=== PATIENT | male | born 1975 | race African-American/Black ===

== ENCOUNTER 2017-07-16 03:05 | Emergency (ER) | payer OTHER, MEDICAID ==
[2017-07-16 03:10] VITALS: BP 132/79; PULSE 55; RESP 16; TEMP 98.1; O2SAT 100
--- NOTE | 2017-07-16 04:30 | EDPHY ---
H & P Stated Complaint: RASH TO FOREHEAD FOR "A WHILE" Time Seen by Provider: 07/16/17 04:24 HPI/ROS: Chief Complaint: Lesion on forehead HPI: 42-year-old homeless male presenting for evaluation of a lesion has been as forehead "for awhile ". When asked what this means patient states he is uncertain. Patient states that is painful. He has not had any fevers or chills. I further questioning the patient began angry and just stated "I when she does take care of it ". Patient unwilling to provide any further history. ROS: 10 point Review of Systems is negative except as noted in the HPI. Physical Exam: Gen: Awake, Alert, No Distress HEENT: Patient has a small 1 cm non-erythematous lesion is center of his forehead. There is no fluctuance or pointing. There is no mass. There is no surrounding erythema. Patient will not allow me to touch it Skin: no rash Neuro: CN II-XII intact, Sensation grossly intact, Strength 5/5 in bilateral upper and lower extremities - Personal History Current Tetanus/Diphtheria Vaccine: Yes Current Tetanus Diphtheria and Acellular Pertussis (TDAP): Yes Tetanus Vaccine Date: 05/2012 - Medical/Surgical History Hx Asthma: Yes Hx Chronic Respiratory Disease: No Hx Diabetes: No Hx Cardiac Disease: No Hx Renal Disease: No Hx Cirrhosis: No Hx Alcoholism: No Hx HIV/AIDS: No Hx Splenectomy or Spleen Trauma: No Other PMH: ENT surgery for deviated septum, hemorrhoid surgery, hx of chronic pain - Social History Smoking Status: Current every day smoker Constitutional: Initial Vital Signs Temperature (C) 36.7 C 07/16/17 03:06 Heart Rate 55 L 07/16/17 03:06 Respiratory Rate 16 07/16/17 03:06 Blood Pressure 132/79 H 07/16/17 03:06 O2 Sat (%) 100 07/16/17 03:06 Allergies/Adverse Reactions: No Known Allergies Allergy (Verified 07/16/17 03:10) Home Medications: Medication Instructions Recorded No Known Home Meds 01/13/16 Medical Decision Making ED Course/Re-evaluation: During my examination patient became aggressive and agitated. While I was examining his lesion he brought and arm up toward me. I grabbed his forearm to prevent for myself from being struck. Patient got increasingly agitated. I told the patient that I must examine him in order to treat him. He stated that he just wanted some cream for it. I told him I cannot treat him further less the last me to examine it. He became increasingly insulting and aggravated. Patient does not have any emergency medical condition. He has had a medical screening examination. Patient was invited to leave the emergency department. He was escorted off the premises by security. Departure - Departure Disposition: Home, Routine, Self-Care Clinical Impression: Skin lesion Condition: Good Referrals: UNKNOWN,RUI [Other] - As per Instructions
== END 2017-07-16 04:47 | disposition home or self-care (01) ==
DX: L98.9 Disorder of the skin and subcutaneous tissue, unspecified (principal); F17.200 Nicotine dependence, unspecified, uncomplicated; J45.909 Unspecified asthma, uncomplicated

== ENCOUNTER 2017-08-26 14:56 | Emergency (ER) | payer OTHER, MEDICAID ==
[2017-08-26 15:04] VITALS: BP 147/88; PULSE 63; RESP 16; TEMP 98.6; O2SAT 97
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
== END 2017-08-26 15:46 | disposition home or self-care (01) ==
LOC: CED 14:56
DX: R20.2 Paresthesia of skin (principal); J45.909 Unspecified asthma, uncomplicated; F17.200 Nicotine dependence, unspecified, uncomplicated

== ENCOUNTER 2017-09-10 02:42 | Emergency (ER) | payer OTHER, MEDICAID ==
--- NOTE | 2017-09-10 02:47 | EDPHY ---
H & P Time Seen by Provider: 09/10/17 02:45 HPI/ROS: CC: "I think I'm hypothermic and by blood sugar might be low" HPI: This 42-year-old male presents to the emergency department tomas stating that he feels he is hypothermic and his blood sugar might be low. He states every time he goes outside he feels cold and every time he comes inside he feels restless and tired. He states this has been going on for "days, weeks , months, years." He states he has taken a glycemic test in the past and his blood glucose was 60. He says the lowest it has ever been has been 40. The patient is homeless and states he left his ID at the [facility] down the street. He says he can't get a hotel room without his license. He feels that when he goes back to the [facility] they will tell him they do not have his license and likens this to if we check his BG and it reads normal "you'll just tell me nothing is wrong." I explained that even if his BG is normal there are many other conditions that we could consider by physical exam and blood tests. He states that he does not want his blood drawn and will not even consent to a fingerstick blood glucose or physical exam. He states "you should be able to tell just by looking at me and checking my arms and legs that I'm hypothermic and my blood sugar is low." He then goes on to tell a story about how he has donated plasma in the past and has passed out requiring him to get stitches in his chin. At this time he would just like something to eat and to digest for 15 min. His temperature at triage is 36.4C but no other vitals signs were allowed by the patient. He will not consent to further treatment and agrees to sign out against medical advice. He is not significantly agitated, speaks in full and lucid sentences, does not appear to be under the influence of any mind altering substances. He appears to understand what my recommendations are, the benefit of these recommendations, and the risks of not following these recommendations, up to and including disability and/or . Source: Patient Exam Limitations: Other (Refusing exam) - Medical/Surgical History PMH: PMH: "neuropathic peripheral neuropathy" PSH: denied NKDA Meds: denied - Social History Smoking Status: Unknown if ever smoked (Denied current tobacco use) Alcohol Use: Other (denies) Drug Use: Other (denies) - Physical Exam Exam: Patient refused physical exam. He was given juice and snacks. Observed: Alert and oriented x 3 in NAD. Appears slightly fatigued. HEENT: normocephalic, no obvious head trauma, EOMI, mucous membranes moist Neck: supple, no JVD Heart sounds: not examined. Lungs: not examined but no cough, non-labored breathing, no conversational dyspnea Abd: not examined Ext: no edema, moves all extremities well Neuro: speech normal, no slurring, appropriate conversation, no observed obvious neurologic deficit ADDENDUM: At discharge, patient apologizes for refusing treatment. Allows a heart and lung exam which were normal without any abnormality. He also wanted to know his weight prior to leaving. Medical Decision Making ED Course/Re-evaluation: Patient more alert after eating and resting for 20 minutes. Still declines labs but allowed a heart and lung exam. Differential Diagnosis: DDx: includes but is not limited to hypoglycemia, electrolyte abnormality, intracranial abnormality, infection, substance abuse, psychiatric disorder Departure - Departure Disposition: Against Medical Advice Clinical Impression: Weakness generalized Condition: Good Instructions: Fatigue (ED) Additional Instructions: Please return to the Emergency Department if you change your mind and would like further evaluation. Please follow up with a primary care provider within the next few days. Referrals: [facility],. [Clinic] - As per Instructions
== END 2017-09-10 03:45 | disposition left against medical advice (07) ==
LOC: CED 02:42 → MERGE 02:42 → CED 03:45
DX: R53.1 Weakness (principal)

== ENCOUNTER 2017-09-23 17:35 | Emergency (ER) | payer OTHER, MEDICAID ==
[2017-09-23 17:43] VITALS: BP 147/88; PULSE 63; RESP 18; TEMP 98.6; O2SAT 98
--- NOTE | 2017-09-23 17:55 | EDPHY ---
H & P Time Seen by Provider: 09/23/17 17:39 HPI/ROS: Chief complaint. Left face pain HPI. Patient complains of bruising and pain to the left face. It has been present for 2 days. He says that he was combing his mills on the right cheek and facial hair was coming out. He decided to comb harder on the left cheek and then subsequently developed some pain and bruising to the left cheek. It is worse when he opens is mouth widely or pushes on the bruised area. He has no dental pain. There has been no fever. He is concerned about infection. ROS Constitutional. no fever/chills, no weakness Eyes. no problems with vision ENT. no sore throat, no nasal drainage Cardiovascular. no chest pain Respiratory. no shortness of breath, no cough Abdominal. no abdominal pain, no nausea/vomiting, no diarrhea . no problems urinating MS. no calf pain/swelling, no neck/back pain, no joint pain Skin. Bruise left cheek Lymph. no swollen glands Neuro. no headache, no dizziness, no difficulty walking or with speech Past Medical/Surgical History: Single, daily smoker, no alcohol Social History: Hemorrhoid surgery, ENT surgery, chronic pain Smoking Status: Current some day smoker Physical Exam: General Appearance: Alert well-developed male mild distress vital signs stable Eyes: Pupils equal and round no pallor or injection. ENT, mucous membranes are moist. No evidence of dental infection or abscess or swelling. Respiratory: There are no retractions, lungs are clear to auscultation. Cardiovascular: Regular rate and rhythm. Gastrointestinal: Abdomen is soft and nontender, no masses, bowel sounds normal. Neurological: Awake and alert, sensory and motor exams grossly normal. Skin: Bruising to the left cheek and tender to palpation Musculoskeletal: Neck is supple nontender. Extremities symmetrical, full range of motion. Psychiatric: Patient is oriented X 3, there is no agitation. Constitutional: Initial Vital Signs Temperature (C) 37 C 09/23/17 17:40 Heart Rate 63 09/23/17 17:40 Respiratory Rate 18 09/23/17 17:40 Blood Pressure 147/88 H 09/23/17 17:40 O2 Sat (%) 98 09/23/17 17:40 O2 Delivery Mode Room Air Allergies/Adverse Reactions: No Known Allergies Allergy (Verified 09/23/17 17:43) Home Medications: Medication Instructions Recorded No Known Home Meds 01/13/16 Medical Decision Making ED Course/Re-evaluation: Patient tells me he would really just like some bacitracin to put on the bruise. He does not wish any other medications. Patient and I discussed treatment plan including criteria for return and importance of follow-up and further evaluation. He expresses understanding and agreement Patient is given bacitracin samples Differential Diagnosis: This appears to be bruise from local trauma. There is no evidence of cellulitis or dental infection. Departure - Departure Disposition: Home, Routine, Self-Care Clinical Impression: Facial bruising Qualifiers: Encounter type: initial encounter Qualified Code(s): S00.83XA - Contusion of other part of head, initial encounter Condition: Good Instructions: Facial Contusion (ED) Additional Instructions: Apply bacitracin antibiotic ointment 3-4 times daily next 3 days. Return for worsening symptoms. Recheck in 2-3 days if not improving Referrals: MAKAYLA VLAIENTE [Primary Care Provider] - 2-3 days, if not improved
== END 2017-09-23 18:05 | disposition home or self-care (01) ==
LOC: CED 17:35
DX: S00.83XA Contusion of other part of head, initial encounter (principal); F17.200 Nicotine dependence, unspecified, uncomplicated; X58.XXXA Exposure to other specified factors, initial encounter

== ENCOUNTER 2017-10-24 06:29 | Emergency (ER) | payer OTHER, MEDICAID ==
[2017-10-24 06:40] VITALS: BP 143/86
--- NOTE | 2017-10-24 06:51 | EDPHY ---
H & P Stated Complaint: "pain" from neuropathy per pt, cuts on face bothering him as well. Time Seen by Provider: 10/24/17 06:48 HPI/ROS: CHIEF COMPLAINT: Forehead pain HISTORY OF PRESENT ILLNESS: The patient is a 42-year-old homeless man with a history of picking. He states that he has neuropathic pain to his forehead from a poison that he took some years ago. He has been her several times complaining of facial pain. He has a chronic wound in the center of his forehead that he repeatedly picks. He is here requesting Neosporin. He states that he is also having headache and is requesting Tylenol. No fevers. No trauma. REVIEW OF SYSTEMS: Constitutional: denies: chills, fever, recent illness, recent injury EENTM: denies: blurred vision, double vision, nose congestion Respiratory: denies: cough, shortness of breath Cardiac: denies: chest pain, irregular heart rate, lightheadedness, palpitations Gastrointestinal/Abdominal: denies: abdominal pain, diarrhea, nausea, vomiting, blood streaked stools Genitourinary: denies: dysuria, frequency, hematuria, pain Musculoskeletal: denies: joint pain, muscle pain Skin: See HPI Neurological: See HPI denies: numbness, paresthesia, tingling, dizziness, weakness Hematologic/Lymphatic: denies: blood clots, easy bleeding, easy bruising Immunologic/allergic: denies: HIV/AIDS, transplant EXAM: GENERAL: Disheveled and in no acute distress. HEAD: Atraumatic, normocephalic. EYES: Pupils equal round and reactive to light, extraocular movements intact, sclera anicteric, conjunctiva are normal. ENT: TMs normal, nares patent, oropharynx clear without exudates. Moist mucous membranes. NECK: Normal range of motion, supple without lymphadenopathy or JVD. LUNGS: Breath sounds clear to auscultation bilaterally and equal. No wheezes rales or rhonchi. HEART: Regular rate and rhythm without murmurs, rubs or gallops. ABDOMEN: Soft, nontender, normoactive bowel sounds. No guarding, no rebound. No masses appreciated. BACK: No CVA tenderness, no spinal tenderness, step-offs or deformities EXTREMITIES: Normal range of motion, no pitting or edema. No clubbing or cyanosis. NEUROLOGICAL: Cranial nerves II through XII grossly intact. Normal speech, normal gait. 5/5 strength, normal movement in all extremities, normal sensation PSYCH: Normal mood, normal affect. SKIN: Small lesion to center forehead, no appearance of infection, no vesicular lesions. Source: Patient Exam Limitations: No limitations - Personal History Current Tetanus Diphtheria and Acellular Pertussis (TDAP): Yes Tetanus Vaccine Date: 2016 - Medical/Surgical History Hx Asthma: Yes Hx Chronic Respiratory Disease: No Hx Diabetes: No Hx Cardiac Disease: No Hx Renal Disease: No Hx Cirrhosis: No Hx Alcoholism: No Hx HIV/AIDS: No Hx Splenectomy or Spleen Trauma: No Other PMH: neuropathy,hypoglycemia, skin picking - Family History Significant Family History: No pertinent family hx - Social History Smoking Status: Current every day smoker Alcohol Use: Heavy Drug Use: Marijuana Constitutional: Initial Vital Signs Temperature (C) 36.7 C 10/24/17 06:37 Heart Rate 64 10/24/17 06:37 Respiratory Rate 14 10/24/17 06:37 Blood Pressure 143/86 H 10/24/17 06:37 O2 Sat (%) 92 10/24/17 06:37 O2 Delivery Mode Room Air Allergies/Adverse Reactions: No Known Allergies Allergy (Verified 10/24/17 06:36) Home Medications: Medication Instructions Recorded NK [No Known Home Meds] 09/10/17 Medical Decision Making ED Course/Re-evaluation: The patient is a homeless man who is here requesting Tylenol and Neosporin. He is stable vital signs is nontoxic-appearing. He was treated with Neosporin and Tylenol. We discussed alternative ways to obtain these medications in the future. Patient understands this plan and declines further workup or observation. Differential Diagnosis: Partial list of the Differential diagnosis considered include but were not limited to; skin picking, substance abuse, neuropathy, headache and although unlikely based on the history and physical exam, I also considered zoster, wound infection, foreign body, stroke. - Data Points Medications Given: Discontinued Medications Acetaminophen (Tylenol) 1,000 mg PO EDNOW ONE Stop: 10/24/17 06:56 Last Admin: 10/24/17 07:02 Dose: 1,000 mg Departure - Departure Disposition: Home, Routine, Self-Care Clinical Impression: Picking own skin Headache Qualifiers: Headache type: unspecified Headache chronicity pattern: acute headache Intractability: not intractable Qualified Code(s): R51 - Headache Condition: Fair Instructions: Acute Headache (ED) Referrals: [facility],. [Clinic] - As per Instructions
[2017-10-24] MEDS ORDERED: ACETAMINOPHEN 500 MG TAB PO ONE (06:55)
== END 2017-10-24 07:00 | disposition home or self-care (01) ==
LOC: CED 06:29
DX: R51 Headache (principal); F42.4 Excoriation (skin-picking) disorder; F17.200 Nicotine dependence, unspecified, uncomplicated; J45.909 Unspecified asthma, uncomplicated

== ENCOUNTER 2017-10-26 10:36 | Emergency (ER) | payer OTHER, MEDICAID ==
[2017-10-26 10:46] VITALS: BP 165/71
--- NOTE | 2017-10-26 11:09 | EDPHY ---
H & P Stated Complaint: c/o upper back pain - wants pain meds- will not get undressed Time Seen by Provider: 10/26/17 10:41 HPI/ROS: Chief Complaint: Upper back pain HPI: 42-year-old homeless male who is very well known to this emergency department with a history of chronic pain which he attributes to neuropathy. Patient is presenting today complaining of 2 days of upper back pain. Denies any falls or recent injuries. No heavy lifting. Does state he exercises regularly. No new numbness or weakness. States he had a low back pain about 15 years ago and had an injection at that time as well review knees injection today. Is also review knees x-rays. He has an appoint with primary care physician in 2 days. He is not taking any pain medication for this no fevers or chills. Denies any IV drug use. Pain is described about a 4/10. There are no aggravating or alleviating factors. ROS: 10 point Review of Systems is negative except as noted in the HPI. PMH: Chronic nerve pain Social History: Denies smoking, denies alcohol, denies other drug use Family History: non-contributory Physical Exam: Gen: Awake, Alert, No Distress HEENT: Nose: no rhinorrhea Eyes: PERRLA, EOMI Mouth: Moist mucosa Neck: Supple, no JVD Chest: nontender, lungs clear to auscultation Heart: S1, S2 normal, no murmur Abd: Soft, non-tender, no guarding Back: no CVA tenderness, no midline tenderness patient has palpable muscle spasm in the bilateral trapezius muscle reproducing presenting complaint. No midline tenderness or step-offs. Ext: no edema, non-tender Skin: no rash Neuro: CN II-XII intact, Sensation grossly intact, Strength 5/5 in bilateral upper and lower extremities - Personal History Current Tetanus Diphtheria and Acellular Pertussis (TDAP): Unsure Tetanus Vaccine Date: 2016 - Medical/Surgical History Hx Asthma: Yes Hx Chronic Respiratory Disease: No Hx Diabetes: No Hx Cardiac Disease: No Hx Renal Disease: No Hx Cirrhosis: No Hx Alcoholism: No Hx HIV/AIDS: No Hx Splenectomy or Spleen Trauma: No Other PMH: neuropathy,hypoglycemia, skin picking - Social History Smoking Status: Current every day smoker Constitutional: Initial Vital Signs Temperature (C) 36.6 C 10/26/17 10:45 Heart Rate 72 10/26/17 10:45 Respiratory Rate 18 10/26/17 10:45 Blood Pressure 165/71 H 10/26/17 10:45 O2 Sat (%) 96 10/26/17 10:45 O2 Delivery Mode Room Air Allergies/Adverse Reactions: No Known Allergies Allergy (Verified 10/24/17 06:36) Home Medications: Medication Instructions Recorded Ibuprofen 600 mg PO Q8 PRN #10 tablet 10/26/17 Medical Decision Making ED Course/Re-evaluation: 42-year-old male with musculoskeletal upper back pain. He has not have any red flags for epidural abscess. He is afebrile. He is completely neurologically intact. I do not feel imaging is indicated at this time. He has an appoint with primary care physician in 2 days. Will give him a Lidoderm patch in ibuprofen. He is in agreement with this plan at this time. - Data Points Medications Given: Discontinued Medications Miscellaneous Medication (Icy Hot Lidocaine/Menthol 4%/1% Patch) 1 patch TD EDNOW ONE Stop: 10/26/17 11:12 Last Admin: 10/26/17 11:23 Dose: 1 patch Departure - Departure Disposition: Home, Routine, Self-Care Clinical Impression: Back pain Condition: Good Instructions: Back Pain (ED) Additional Instructions: Take ibuprofen, 600 mg, 3 times a day. You may also take acetaminophen, 1000 mg every 6 hours. You may replace the Lidoderm patch every 24 hr. Make sure to remain active. Did do not lay in bed or sit in a chair for long periods. It is important to remain active and keep your back moving in order to improve. Please see the attached back exercise instructions. Referrals: [facility] TREVI[facility] [Other] - As per Instructions Prescriptions: Ibuprofen 600 mg PO Q8 PRN #10 tablet PRN Reason: Pain, Moderate
[2017-10-26] MEDS ORDERED: LIDOCAINE 4%/MENTHOL 1% PATCH TD ONE (11:11)
[2017-10-26] MEDS ORDERED: IBUPROFEN 600 MG TAB PO ONE (11:16)
== END 2017-10-26 11:25 | disposition home or self-care (01) ==
LOC: CED 10:36
DX: M54.6 Pain in thoracic spine (principal); F17.200 Nicotine dependence, unspecified, uncomplicated; J45.909 Unspecified asthma, uncomplicated

== ENCOUNTER 2017-10-26 16:09 | Emergency (ER) | payer OTHER, MEDICAID ==
[2017-10-26] MEDS ORDERED: LIDOCAINE 4%/MENTHOL 1% PATCH TD ONE (16:43)
[2017-10-26] MEDS ORDERED: IBUPROFEN 600 MG TAB PO ONE (16:45)
--- NOTE | 2017-10-26 16:45 | EDPHY ---
ED Progress Note Narrative: This is a 42-year-old male known to me from previous emergency department visits. He was seen in this emergency department by Dr. Nguyen about 5 hr ago with complaints of upper back pain. I reviewed Dr. Nguyen's note. At that time he was treated with a lidocaine patch and ibuprofen. He was given prescriptions for same. He has an appointment with his primary care physician day after tomorrow. Nothing has changed since his visit this morning. He presents for the second time today requesting an MRI scan, stating that he is concerned that there is something pressing in his chest that is affecting his breathing, and causing him to feel numb across the chest an into the arms. These are not new symptoms as he has been feeling this for the last couple of years. He has had no difficulty walking. He has no bowel or bladder problems. I explained to him that I do not think that he needs an emergency MRI scan. He plans to go to another hospital and request this study. I have explained that I do not think another hospital will perform an emergency MRI scan. I offered to repeat the neurologic exam that was done earlier today, but he declined a physical exam and one was not performed by me. I did observe him walking I note that his gait is normal. He was moving about easily during our conversation. He removed the lidocaine patch that had been placed earlier and this was replaced by us. I have encouraged him to continue with ibuprofen. It is too soon for a 2nd dose but he was given a dose to take when the time arrives. I do not feel that he has an emergency medical condition.
== END 2017-10-26 16:49 | disposition home or self-care (01) ==
LOC: CED 16:09
DX: M54.6 Pain in thoracic spine (principal)

== ENCOUNTER 2017-10-31 19:45 | Emergency (ER) | payer OTHER, MEDICAID ==
[2017-10-31 20:02] VITALS: BP 173/100
[2017-10-31] MEDS ORDERED: IBUPROFEN 600 MG TAB PO ONE (20:57)
[2017-10-31] MEDS ORDERED: LIDOCAINE 4%/MENTHOL 1% PATCH TD ONE (20:57)
[2017-10-31] MEDS ORDERED: PATCH REMOVAL 1 EA PATCH TD SCH (21:00)
--- NOTE | 2017-10-31 21:00 | EDPHY ---
H & P Time Seen by Provider: 10/31/17 20:01 HPI/ROS: This patient complains of chronic upper back pain 7/10 intensity at its peak achy in nature associated with bilateral upper extremity paresthesias the describes as numbness in the glove like distribution. This is his 3rd visit in the past 5 days. I reviewed his previous visits. He admits that he did not fill the Lidoderm patch prescription from Dr. Nguyen and has not taken any medications yet today. He reports that at some point he had injection in his upper back of analgesic and steroid with improvement in his symptoms but does not remember the the timing of that treatment. He also does not recall the location of that treatment. Patient denies any acute injuries. He did see his primary care physician who referred him to see the pain clinic, but he has not been seen yet at the pain clinic. ROS: Constitutional: No fevers or chills HEENT: No complaints new line pulmonary: He denies any acute shortness of breath. Cardiovascular: No complaints GI: No complaints integumentary: No skin rash Neuro: No bowel or bladder incontinence. No lower extremity numbness tingling or weakness. He denies any upper extremity weakness. 7 point ROS is otherwise negative. Social History: Patient uses marijuana regularly. He denies any IV drug use. Denies any other drug use Smoking Status: Current every day smoker Physical Exam: General Appearance: Black male Alert, no distress. Eyes: Pupils equal and round no pallor or injection. ENT, Mouth: Mucous membranes moist. Respiratory: There are no retractions, lungs are clear to auscultation. Cardiovascular: Regular rate and rhythm. No murmur gallop rub. Gastrointestinal: Abdomen is soft and nontender, no masses, bowel sounds normal. Neck: Nontender, supple Back: No midline tenderness. Patient has paraspinous muscular tenderness in the rhomboid and trapezius region bilaterally that reproduces his symptoms. Neurological: GCS 15. Patient maintains 5/5 strength bilateral upper extremities with 2+ symmetric biceps, triceps and brachioradialis reflexes and 2 + symmetric patellar reflexes bilaterally. He reports glove like distribution decreased light touch sensation to upper extremities but no focal radicular findings. Skin: Warm and dry, no rashes. Musculoskeletal: Neck is supple nontender. Extremities are symmetrical, full range of motion. Psychiatric: Mood and affect are normal. DIFFERENTIAL DIAGNOSIS: After history and physical exam differential diagnosis was considered for chronic upper back pain-musculoskeletal in etiology, muscle strain, bulging disc disease, osteoarthritis, drug seeking Constitutional: Initial Vital Signs Temperature (C) 37.2 C 10/31/17 19:59 Heart Rate 76 10/31/17 19:59 Respiratory Rate 16 10/31/17 19:59 Blood Pressure 173/100 H 10/31/17 19:59 O2 Sat (%) 97 10/31/17 19:59 O2 Delivery Mode Room Air Allergies/Adverse Reactions: No Known Allergies Allergy (Verified 10/31/17 20:01) Home Medications: Medication Instructions Recorded Ibuprofen 600 mg PO Q8 PRN #10 tablet 10/26/17 Methocarbamol [Robaxin 750 mg (*)] 750 - 1,500 mg PO QID PRN #30 tab 10/31/17 MDM/Departure - MDM Medications Given: Miscellaneous Information (Patch Removal) 1 ea TD DAILY21 JASON Stop: 04/29/18 20:59 Last Admin: 10/31/17 21:19 Dose: Not Given Discontinued Medications Ibuprofen (Motrin) 600 mg PO EDNOW ONE Stop: 10/31/17 20:58 Last Admin: 10/31/17 21:10 Dose: 600 mg Miscellaneous Medication (Icy Hot Lidocaine/Menthol 4%/1% Patch) 1 patch TD EDNOW ONE Stop: 10/31/17 20:58 Last Admin: 10/31/17 21:11 Dose: 1 patch ED Course/Re-evaluation: This patient has chronic complaints with no focal findings that would suggest acute radiculopathy. No evidence of cauda equina. No fevers or other red flag findings for epidural abscess or other concerns. I recommended the patient follow through with the plan of ibuprofen and Lidoderm patches. He is given a dose of each of those here tonight. Also provided a script for methocarbamol muscle relaxant with plan to follow up with outpatient pain clinic. He understands need to return emergency department should she develop any significant worsening of symptoms despite treatment plan. - Depart Disposition: Home, Routine, Self-Care Clinical Impression: Upper back pain, Paresthesias Condition: Good Instructions: Back Pain (ED) Additional Instructions: Diagnosis: Thoracic back pain 2. Paresthesias Plan: Ibuprofen 600 mg per 6 hr while awake for pain Lidoderm patches in addition Methocarbamol muscle relaxant and Tylenol in addition as needed. Follow up with the Pain Clinic as planned. Prescriptions: Methocarbamol [Robaxin 750 mg (*)] 750 - 1,500 mg PO QID PRN #30 tab PRN Reason: Muscle Spasms Referrals: MAKAYLA VALIENTE [Primary Care Provider] - As per Instructions
== END 2017-10-31 21:19 | disposition home or self-care (01) ==
LOC: CED 19:45
DX: M54.6 Pain in thoracic spine (principal); R20.2 Paresthesia of skin

== ENCOUNTER 2017-11-01 19:07 | Emergency (ER) | payer OTHER, MEDICAID ==
[2017-11-01 19:28] VITALS: BP 170/93
--- NOTE | 2017-11-01 19:36 | EDPHY ---
H & P Stated Complaint: UPPER BACK PAIN 2 WEEKS Time Seen by Provider: 11/01/17 19:36 HPI/ROS: HPI CHIEF COMPLAINT: Back pain HISTORY OF PRESENT ILLNESS: This is a 42-year-old male, seen multiple times recently in emergency room he had 2 ER visits on 10/26, another ER visit on , and before that he had ER visit on 10/24. He presents to the emergency room complaining of chronic pain. He is complaining of upper back pain. He states this is chronic he has had this for years. He denies any new injury. He is requesting pain medicine. I explained him that we should evaluate him with an x-ray and possibly blood work to help delineate his upper back pain that he states he has had chronic for years however these recommendations of obtaining an x-ray and blood work he became very angry and started Cursing at my face. Shaking his finger in my face. I asked him kindly to please not do that and that are more than happy to help him however he became irate. I became concerned for staff and my safety. I have asked for security at bedside. The patient not explain why so may add. I offered to do an x-ray of his back I also offered to give him anti-inflammatory pain medicine and check blood work however he has declined this and became high rate cursing at me. Of note here in the emergency room the patient refused to change in a gown, he refused to answer questions at triage, and additionally refused to allow me to fully examine his back. Clinically on exam he appears well nontoxic no acute distress. His neurological exam grossly is unremarkable. I was unable to fully assess his back however the assessment that I did obtain was unremarkable in terms of no significant swelling or abnormality seen on exam. I was able to slightly palpate his thoracic spine without significant pain. There are no signs of cauda equina on exam. No fever. No focal numbness or tingling and no weakness on exam. Past Medical History: Chronic back pain, neuropathy Past Surgical History: No recent surgery Social History: Homeless. Family History: Noncontributory ROS REVIEW OF SYSTEMS: A comprehensive 10 point review of systems is otherwise negative aside from elements mentioned in the history of present illness. Exam Constitutional appears well nontoxic triage nursing summary reviewed, vital signs reviewed, awake/alert. Eyes normal conjunctivae and sclera, EOMI, PERRLA. HENT normal inspection, atraumatic, moist mucus membranes, no epistaxis, neck supple/ no meningismus, no raccoon eyes. Respiratory clear to auscultation bilaterally, normal breath sounds, no respiratory distress, no wheezing. Cardiovascular rate normal, regular rhythm, no murmur, no edema, distal pulses normal. Gastrointestinal soft, non-tender, no rebound, no guarding, normal bowel sounds, no distension, no pulsatile mass. Genitourinary no CVA tenderness. Musculoskeletal thoracic spine: no midline vertebral tenderness, full range of motion, no calf swelling, no tenderness of extremities, no meningismus, good pulses, neurovascularly intact. Skin pink, warm, & dry, no rash, skin atraumatic. Neurologic awake, alert and oriented x 3, AAOx3, moves all 4 extremities equally, motor intact, sensory intact, CN II-XII intact, normal cerebellar, normal vision, normal speech. Psychiatric normal mood/affect. Heme/Lymph/Immune no lymphadenopathy. Differential Diagnosis: Includes but is not limited to in a particular order chronic back pain, neuropathy, annular tear, disc herniation, cauda equina, infection, spinal epidural abscess, bony abnormality, compression fracture Medical Decision Making: Offered to x-ray and obtain blood work for the patient and anti-inflammatory pain medicine however he got I rate and rather threatening. He left the emergency room without any further incident. Source: Patient - Personal History Current Tetanus Diphtheria and Acellular Pertussis (TDAP): Yes Tetanus Vaccine Date: 2016 - Medical/Surgical History Hx Asthma: No Hx Chronic Respiratory Disease: No Hx Diabetes: No Hx Cardiac Disease: No Hx Renal Disease: No Hx Cirrhosis: No Hx Alcoholism: No Hx HIV/AIDS: No Hx Splenectomy or Spleen Trauma: No Other PMH: Chronic degeneritive disc disease, neuropathy, hypoglycemia, skin picking, marijuana user. - Social History Smoking Status: Current some day smoker Constitutional: Initial Vital Signs Temperature (C) 36.9 C 11/01/17 19:26 Heart Rate 68 11/01/17 19: Respiratory Rate 16 11/01/17 19:26 Blood Pressure 170/93 H 11/01/17 19:26 O2 Sat (%) 98 11/01/17 19:26 O2 Delivery Mode Room Air Allergies/Adverse Reactions: No Known Allergies Allergy (Verified 10/31/17 20:01) Home Medications: Medication Instructions Recorded NK [No Known Home Meds] 11/01/17 Departure - Departure Disposition: Against Medical Advice Clinical Impression: Back pain Qualifiers: Back pain location: thoracic back pain Chronicity: chronic Back pain laterality : unspecified Qualified Code(s): M54.6 - Pain in thoracic spine; G89.29 - Other chronic pain; G89.29 - Other chronic pain Condition: Good Referrals: NONE *PRIMARY CARE P,. [Primary Care Provider] - As per Instructions
== END 2017-11-01 19:59 | disposition left against medical advice (07) ==
DX: M54.6 Pain in thoracic spine (principal); G89.29 Other chronic pain; F17.200 Nicotine dependence, unspecified, uncomplicated

== ENCOUNTER 2017-11-01 23:58 | Emergency (ER) | payer OTHER, MEDICAID ==
[2017-11-02 00:09] VITALS: BP 140/85
[2017-11-02] MEDS ORDERED: KETOROLAC 30 MG/1 ML SDV IM ONE (00:33)
[2017-11-02] MEDS ORDERED: LIDOCAINE 4%/MENTHOL 1% PATCH TD ONE (00:35)
--- NOTE | 2017-11-02 00:38 | EDPHY ---
H & P Stated Complaint: c/o upper back pain, seen for same at [facility] ED today Time Seen by Provider: 11/02/17 00:01 HPI/ROS: CC: upper back pain "for years" HPI: This 42-year-old male well known to this ER, with at least 6 ER visits [facility] in the last 10 days presents to the emergency department complaining of chronic upper back pain. He was in fact seen earlier today at the [facility] requesting pain medication. They recommended an x-ray and possibly blood work and at that point the patient reportedly became irate and security had to be called to the bedside. The patient now presents to [facility] for chronic upper back pain, "they say I have degenerative discs." I have seen this patient before. At this time he is being pleasant and cooperative for the most part. Reportedly he has a history of chronic back pain for which she has in the past received epidural injections. He produces handwritten note which he states is from his primary care provider, Rosa Martínez, with the number for spine specialists at the [facility]. He states his pain today is in his upper back from the shoulder blades up. He states there is nothing different about this pain tonight verses a number of years he has had the pain. He states he saw his primary care provider approximately 4 days ago and at that time also received a respite all injection. It is unclear whether he is referring to this visit or another recent visit where he states he had an EKG, blood tests, and x-rays. "I signed a waiver and you can go look it up." He states his hands tingle bilaterally but attributes this to his past medical history of neuropathy. He denies weakness in his upper extremities. He denies saddle anesthesia (this term was explained to him), and he also denies bowel or bladder incontinence. He denies recent trauma. He states he is quite active and boxes, lift weights, and power runs. He he denies fever or IV drug use. He openly admits to having a restraining order against him at the hospital down the road and asks "if I were to go there for an emergency, they would have to see me, right?" REVIEW OF SYSTEMS: Constitutional: No fever, no chills. Eyes: No discharge. ENT: No sore throat. Respiratory: No shortness of breath. Occasionally coughs up "small amount of streaks of blood". Cardiac: No chest pain, no palpitations. Gastrointestinal: No abdominal pain, no vomiting. Genitourinary: No hematuria. Musculoskeletal: See HPI. Skin: No rashes. Neurological: No headache. "Head feels swollen." Source: Patient Exam Limitations: Other (The patient is fairly cooperative however if you try and clarify his narrative or offer education he gets inpatient and edgy quite quickly.) - Personal History Current Tetanus Diphtheria and Acellular Pertussis (TDAP): Yes Tetanus Vaccine Date: 2016 - Medical/Surgical History PMH: PMH: Homelessness, chronic back pain, DDD, neuropathy, question of asthma per prior record from [facility], the patient admits to Risperdal injections but it is unclear if this is for schizophrenia, bipolar disorder or another psychiatric diagnosis. Denies kidney disease or GI bleed. PSH: From a recent visit to [facility] surgeries are listed as hemorrhoidectomy, nasal endoscopy, oral surgery. The patient also states he has had epidural injections in the past as well as other procedures for his back pain. FH: Not obtained NKDA Meds: Risperdal IM PCP: Dr. Goldie Martínez Hx Asthma: No Hx Chronic Respiratory Disease: No Hx Diabetes: No Hx Cardiac Disease: No Hx Renal Disease: No Hx Cirrhosis: No Hx Alcoholism: No Hx HIV/AIDS: No Hx Splenectomy or Spleen Trauma: No Other PMH: Chronic degeneritive disc disease, neuropathy, hypoglycemia, skin picking, marijuana user. - Social History Smoking Status: Current some day smoker Additional Social History: Smokes tobacco, denies other tobacco use. Denies alcohol use. Occasional marijuana use. Denies IV drug use. Homeless. - Physical Exam Exam: General Appearance: Alert, no distress. Slightly unkempt. Refuses to change into gown for exam. Eyes: Pupils equal and round no pallor or injection. ENT, Mouth: Mucous membranes are moist. Respiratory: There are no retractions. Cardiovascular: Normal peripheral perfusion. No JVD. Gastrointestinal: Abdomen flat. Neurological: Awake and alert, motor exams grossly normal. Skin: Warm and dry. Musculoskeletal: Neck is supple, FROM. Only limited MS exam allowed. No apparent abnormalities noted. Extremities are symmetrical, full range of motion. Psychiatric: Patient is oriented X 3. DIFFERENTIAL DIAGNOSIS: After history and physical exam differential diagnosis was considered for but not limited to: DDD, chronic pain, TB, PE, epidural abscess, rhabdomyolysis, cardiac ischemia, AAA, homelessness, narcotic seeking, psychiatric disorder. Constitutional: Initial Vital Signs Temperature (C) 97.9 F 11/02/17 00:05 Heart Rate 59 L 11/02/17 00:05 Respiratory Rate 16 11/02/17 00:05 Blood Pressure 140/85 H 11/02/17 00:05 O2 Sat (%) 97 11/02/17 00:05 O2 Delivery Mode Room Air Allergies/Adverse Reactions: No Known Allergies Allergy (Verified 10/31/17 20:01) Home Medications: Medication Instructions Recorded NK [No Known Home Meds] 11/01/17 Medical Decision Making - Diagnostics EKG Interpretation: Declined EKG. Imaging Results: Declined imaging. ED Course/Re-evaluation: The patient was seen and a limited exam was performed due to patient's noncompliance. Vital signs reviewed. His blood pressure is slightly elevated but he states this is much improved from earlier today at his prior ER visit. He was advised to follow this up with his primary care provider. The patient although seemingly more cooperative than his earlier ER visit in terms of conversation, still declines an EKG, imaging, or blood tests. With the heavy sensation he describes in his shoulders I have advised him to have an EKG to rule out cardiac etiology. Again he declined. With the history of coughing up scant amount of blood, I have advised him that we should do a chest x-ray to look for signs of tuberculosis, or pneumonia and we would also be able to see the thoracic spine. He has declined. I have offered him a blood test to look at his electrolytes and muscle enzymes as well as a D-dimer to rule out a blood clot in his lungs and again he declined these tests as well. He agreed to an injection Toradol for his discomfort "can you put it in my back?" He was also given a lidocaine patch to his upper back. He was given 2 tablets of Tylenol to take with him. He was resting comfortably and all his questions were answered to the best of my ability. He has contact information for the "shipping specialist at the [facility]" on a hand written note shown to me. I did review a few of his prior charts from our facilities and a record from [facility], and [facility]. When the nurse went to discharge the patient it was obvious he wanted to stay here to rest further. He became uncooperative with the nurse at this point. Please refer to nursing records. - Data Points Medications Given: Discontinued Medications Acetaminophen (Tylenol) 1,000 mg PO EDNOW ONE Stop: 11/02/17 00:51 Last Admin: 11/02/17 00:50 Dose: 1,000 mg Ketorolac Tromethamine (Toradol) 60 mg IM EDNOW ONE Stop: 11/02/17 00:34 Last Admin: 11/02/17 00:41 Dose: 60 mg Miscellaneous Medication (Icy Hot Lidocaine/Menthol 4%/1% Patch) 1 patch TD EDNOW ONE Stop: 11/02/17 00:36 Last Admin: 11/02/17 00:40 Dose: 1 patch Departure - Departure Disposition: Home, Routine, Self-Care Clinical Impression: Chronic upper back pain, Homelessness Condition: Good Instructions: Chronic Back Pain (ED) Additional Instructions: Call the spine/paint roller cover machine setter at the [facility] as directed by your primary care provider to arrange follow up. is the number you have written down. Return to the ER if numbness, tingling, weakness, fevers, or any other symptoms as listed in your discharge instructions or any other concerns. Follow up with your primary care provider regularly. I have also given you the number of a local primary care clinic as well. Referrals: Patient,NotPresent [Primary Care Provider] - As per Instructions [facility],. [Clinic] - As per Instructions
[2017-11-02] MEDS ORDERED: ACETAMINOPHEN 500 MG TAB PO ONE (00:50)
[2017-11-02] MEDS ORDERED: PATCH REMOVAL 1 EA PATCH TD SCH (21:00)
== END 2017-11-02 00:55 | disposition home or self-care (01) ==
LOC: CED 23:58
DX: M54.6 Pain in thoracic spine (principal); G89.29 Other chronic pain; F17.200 Nicotine dependence, unspecified, uncomplicated; Z59.0 Homelessness
CPT/HCPCS: 96372; 99284; J1885

== ENCOUNTER 2017-11-07 21:46 | Emergency (ER) | payer OTHER, MEDICAID ==
[2017-11-07 21:56] VITALS: BP 134/66
--- NOTE | 2017-11-07 22:02 | EDPHY ---
H & P Time Seen by Provider: 11/07/17 21:51 HPI/ROS: CHIEF COMPLAINT: Upper back pain HISTORY OF PRESENT ILLNESS: Patient is a 42-year-old male who presents to the emergency department with upper back pain. He has been to the emergency department numerous times in the past 2 weeks. He was seen at [facility] on 11/02/2017. Patient complains of chronic upper back pain. He has had this pain for years. He states he has been seen at numerous emergency departments in the area. He had a significant workup including "scans, cancer tests, blood work" at an outside facility that he reports as negative. He denies any new weakness or numbness. No incontinence. He was hoping to get an MRI and/or injections this evening. If we are not able to provide that he wants a note stating he was in the emergency department to follow up with his primary care physician. REVIEW OF SYSTEMS: My complete review of systems is negative except as mentioned in the HPI. Past Medical/Surgical History: Includes chronic back pain, DDD, neuropathy, asthma, possible psychiatric illness. Past surgical history: Hemorrhoidectomy, nasal endoscopy, oral surgery Social history: The patient is homeless Smoking Status: Current some day smoker Physical Exam: Vitals noted GENERAL: No acute distress, alert. HEENT: Eyes normal to inspection, no signs of dehydration. NECK: No thyromegaly, no lymphadenopathy, supple. RESPIRATORY: Clear to auscultation bilaterally, no rales, rhonchi or wheezing. CVS: Regular rate and rhythm, no rubs, murmurs, or gallops. ABDOMEN: Soft, nontender, nondistended, no organomegaly. BACK: Normal to inspection, no CVA tenderness. SKIN: Normal color, no rash, warm, dry. No pallor. EXTREMITIES: No pedal edema, no calf tenderness, no Homans sign or cords, no joint swelling. NEURO/PSYCH: Alert and oriented x3, flat affect, normal motor sensory exam. Normal gait. Constitutional: Initial Vital Signs Temperature (C) 36.7 C 11/07/17 21:52 Heart Rate 59 L 11/07/17 21:52 Respiratory Rate 15 11/07/17 21:52 Blood Pressure 134/66 H 11/07/17 21:52 O2 Sat (%) 97 11/07/17 21:52 O2 Delivery Mode Room Air Allergies/Adverse Reactions: No Known Allergies Allergy (Verified 10/31/17 20:01) Home Medications: Medication Instructions Recorded NK [No Known Home Meds] 11/01/17 Medical Decision Making ED Course/Re-evaluation: In the emergency department I I reviewed the patient's previous medical record. Also reviewed the recent email sent by Randee Beckwith on 11/02/2017. I offered the patient workup in the emergency department. He did not want laboratory studies, EKG or chest x-ray. I discussed options with the patient. At this time I do not feel he necessitates an emergent MRI. This is not appear to be in neuro surgical emergency. Patient requested and was given a lidoderm patch. Patient was given Tylenol 650 mg orally. The patient was given warnings prior to leaving. He will follow up with his primary care physician tomorrow. Differential Diagnosis: My differential includes but is not limited to musculoskeletal strain, spasm, disc herniation, spinal impingement, mass, malignancy, ACS, acute OK, bronchitis , pneumonia, pericarditis Departure - Departure Disposition: Home, Routine, Self-Care Clinical Impression: Upper back pain Condition: Good Instructions: Back Pain (ED) Additional Instructions: Return with increasing weakness, numbness, incontinence of urine or stool, fever or any other concerns. Referrals: MAKAYLA VALIENTE [Non Staff and Non MD] - 1-2 days without fail Stand Alone Forms: Statement of Treatment
[2017-11-07] MEDS ORDERED: LIDOCAINE 4%/MENTHOL 1% PATCH TD ONE (22:03)
[2017-11-07] MEDS ORDERED: ACETAMINOPHEN 325 MG TAB PO ONE (22:03)
[2017-11-08] MEDS ORDERED: PATCH REMOVAL 1 EA PATCH TD SCH (21:00)
== END 2017-11-07 22:29 | disposition home or self-care (01) ==
LOC: CED 21:46
DX: M54.6 Pain in thoracic spine (principal); J45.909 Unspecified asthma, uncomplicated; F17.200 Nicotine dependence, unspecified, uncomplicated

== ENCOUNTER 2017-12-03 11:07 | Emergency (ER) | payer OTHER, MEDICAID ==
[2017-12-03 11:17] VITALS: BP 139/93
[2017-12-03] MEDS ORDERED: IBUPROFEN 600 MG TAB PO ONE (11:27)
[2017-12-03] MEDS ORDERED: LIDOCAINE 4%/MENTHOL 1% PATCH TD ONE (11:27)
--- NOTE | 2017-12-03 11:31 | EDPHY ---
H & P Stated Complaint: Upper back pain x 1.5 month Time Seen by Provider: 12/03/17 11:21 HPI/ROS: CHIEF COMPLAINT: Back pain HISTORY OF PRESENT ILLNESS: The patient is a 42-year-old man is well known to me personally in the department. He is complaining of chronic upper back pain he states that it is actually significantly improved over the last few weeks. He has a follow-up appointment with his back specialist on the . He is here requesting 3 ibuprofen and a lidocaine patch. He states that this has worked well for him in the past. He denies any weakness numbness or paresthesias. No bowel or bladder abnormalities. No declined to walking. No known recent trauma. No fevers. REVIEW OF SYSTEMS: Constitutional: denies: chills, fever, recent illness, recent injury EENTM: denies: blurred vision, double vision, nose congestion Respiratory: denies: cough, shortness of breath Cardiac: denies: chest pain, irregular heart rate, lightheadedness, palpitations Gastrointestinal/Abdominal: denies: abdominal pain, diarrhea, nausea, vomiting, blood streaked stools Genitourinary: denies: dysuria, frequency, hematuria, pain Musculoskeletal: See HPI Skin: denies: lesions, rash, jaundice, bruising Neurological: denies: headache, numbness, paresthesia, tingling, dizziness, weakness Hematologic/Lymphatic: denies: blood clots, easy bleeding, easy bruising Immunologic/allergic: denies: HIV/AIDS, transplant EXAM: GENERAL: Well-appearing, well-nourished and in no acute distress. HEAD: Atraumatic, normocephalic. EYES: Pupils equal round and reactive to light, extraocular movements intact, sclera anicteric, conjunctiva are normal. ENT: TMs normal, nares patent, oropharynx clear without exudates. Moist mucous membranes. NECK: Normal range of motion, supple without lymphadenopathy or JVD. LUNGS: Breath sounds clear to auscultation bilaterally and equal. No wheezes rales or rhonchi. HEART: Regular rate and rhythm without murmurs, rubs or gallops. ABDOMEN: Soft, nontender, normoactive bowel sounds. No guarding, no rebound. No masses appreciated. BACK: No CVA tenderness, no spinal tenderness, step-offs or deformities no tenderness to palpation. Moving easily EXTREMITIES: Normal range of motion, no pitting or edema. No clubbing or cyanosis. NEUROLOGICAL: Cranial nerves II through XII grossly intact. Normal speech, normal gait. 5/5 strength, normal movement in all extremities, normal sensation PSYCH: Normal mood, normal affect. SKIN: Warm, dry, normal turgor, no visible rashes or lesions. Source: Patient Exam Limitations: No limitations - Personal History Current Tetanus Diphtheria and Acellular Pertussis (TDAP): Yes Tetanus Vaccine Date: 2016 - Medical/Surgical History Hx Asthma: No Hx Chronic Respiratory Disease: No Hx Diabetes: No Hx Cardiac Disease: No Hx Renal Disease: No Hx Cirrhosis: No Hx Alcoholism: No Hx HIV/AIDS: No Hx Splenectomy or Spleen Trauma: No Other PMH: Chronic degeneritive disc disease, neuropathy, hypoglycemia, skin picking, marijuana user. - Family History Significant Family History: No pertinent family hx - Social History Smoking Status: Current some day smoker Alcohol Use: Sober Drug Use: None Constitutional: Initial Vital Signs Temperature (C) 36.8 C 12/03/17 11:13 Heart Rate 64 12/03/17 11:13 Respiratory Rate 16 12/03/17 11:13 Blood Pressure 139/93 H 12/03/17 11:13 O2 Sat (%) 97 12/03/17 11:13 O2 Delivery Mode Room Air Allergies/Adverse Reactions: No Known Allergies Allergy (Verified 12/03/17 11:17) Home Medications: Medication Instructions Recorded NK [No Known Home Meds] 11/01/17 Medical Decision Making ED Course/Re-evaluation: 11:30 a.m. we will provide the patient with lidocaine patch and ibuprofen as he requests. He is otherwise eager to go. He has follow-up with his specialist planned. He states that overall he is doing much better and is improving every day. We discussed indications for returning to the emergency department. Differential Diagnosis: Partial list of the Differential diagnosis considered include but were not limited to; chronic back pain, degenerative disc disease and although unlikely based on the history and physical exam, I also considered neuropathy, infection , transverse myelitis, fracture. I discussed these differential diagnoses and the plan with the patient as well as the usual and expected course. The patient understands that the diagnosis is provisional and that in medicine we are not always correct and that further workup is often warranted. Usual and customary warnings were given. All of the patient's questions were answered. The patient was instructed to return to the emergency department should the symptoms at all worsen or return, otherwise to followup with the physician as we discussed. - Data Points Medications Given: Discontinued Medications Ibuprofen (Motrin) 600 mg PO EDNOW ONE Stop: 12/03/17 11:28 Last Admin: 12/03/17 11:30 Dose: 600 mg Miscellaneous Information (Patch Removal) 1 ea TD DAILY21 JASON Stop: 06/01/18 20:59 Last Admin: 12/03/17 11:34 Dose: Not Given Miscellaneous Medication (Icy Hot Lidocaine/Menthol 4%/1% Patch) 1 patch TD EDNOW ONE Stop: 12/03/17 11:28 Last Admin: 12/03/17 11:30 Dose: 1 patch Departure - Departure Disposition: Home, Routine, Self-Care Clinical Impression: Chronic mid back pain Qualifiers: Back pain laterality: midline Qualified Code(s): M54.6 - Pain in thoracic spine ; G89.29 - Other chronic pain; G89.29 - Other chronic pain Condition: Fair Instructions: Chronic Back Pain (ED) Referrals: NONE *PRIMARY CARE P,. [Primary Care Provider] - As per Instructions
[2017-12-03] MEDS ORDERED: PATCH REMOVAL 1 EA PATCH TD SCH (21:00)
== END 2017-12-03 11:38 | disposition home or self-care (01) ==
LOC: CED 11:07
DX: M54.6 Pain in thoracic spine (principal); G89.29 Other chronic pain; F17.200 Nicotine dependence, unspecified, uncomplicated

== ENCOUNTER 2017-12-25 08:23 | Emergency (ER) | payer OTHER, MEDICAID ==
[2017-12-25] MEDS ORDERED: IBUPROFEN 600 MG TAB PO ONE (08:24)
[2017-12-25] MEDS ORDERED: ACETAMINOPHEN 500 MG TAB PO ONE (08:27)
--- NOTE | 2017-12-25 08:32 | EDPHY ---
H & P Time Seen by Provider: 12/25/17 08:25 HPI/ROS: 42 yo M presents requesting ibuprofen for chronic pain issues, states he has an appointment this week for an epidural, but needs ibuprofen until that time.Complains of pain in his neck today, typical for him. Review of systems As per HPI General no fever no chills no weakness HEENT no eye pain no eye discharge. No eye redness, no sore throat Respiratory no cough, no shortness of breath Cardiac no chest pain, no peripheral edema GI no abdominal pain, no diarrhea, no constipation, no nausea, no vomiting no flank pain, no hematuria, no dysuria Musculoskeletal positive myalgias, no joint pain Heme no easy bruising, no easy bleeding Endo no polyuria, no polydipsia Skin no rashes, no pruritus Neuro no syncope, no dizziness, no headaches Psych is no suicidal ideation, no homicidal ideation Past Medical/Surgical History: schizophrenia chronic pain Social History: denies alcohol and drug use Smoking Status: Current some day smoker Physical Exam: 42-year-old male Alert and oriented in no acute distress nontoxic appearance, afebrile Atraumatic normocephalic Neck no JVD, supple, no ecchymosis no swelling, no focal tenderness Lungs clear to auscultation, no respiratory distress Heart regular rate and rhythm Extremities no cyanosis clubbing edema Constitutional: Initial Vital Signs Temperature (C) 36.8 C 12/25/17 08:32 Heart Rate 48 L 12/25/17 08:32 Respiratory Rate 14 12/25/17 08:32 Blood Pressure 122/75 H 12/25/17 08:32 O2 Sat (%) 98 12/25/17 08:32 O2 Delivery Mode Room Air Allergies/Adverse Reactions: No Known Allergies Allergy (Verified 12/25/17 08:30) Home Medications: Medication Instructions Recorded Ibuprofen 600 mg PO Q8 PRN 7 Days #21 tablet 12/25/17 Risperidone 12/25/17 Medical Decision Making ED Course/Re-evaluation: Patient here with chronic history of chronic pain, requesting ibuprofen. Physical exam unremarkable Patient given ibuprofen 600 mg p.o. Patient given acetaminophen 1 g p.o. Impression Chronic pain Plan Ibuprofen prescription Discharge - Data Points Medications Given: Discontinued Medications Acetaminophen (Tylenol) 1,000 mg PO EDNOW ONE Stop: 12/25/17 08:28 Last Admin: 12/25/17 08:30 Dose: 1,000 mg Ibuprofen (Motrin) 600 mg PO EDNOW ONE Stop: 12/25/17 08:25 Last Admin: 12/25/17 08:30 Dose: 600 mg Departure - Departure Disposition: Home, Routine, Self-Care Clinical Impression: Chronic pain Condition: Good Instructions: Chronic Pain (ED) Additional Instructions: Keep your follow up this week. Referrals: Patient,NotPresent [Primary Care Provider] - As per Instructions Prescriptions: Ibuprofen 600 mg PO Q8 PRN 7 Days #21 tablet PRN Reason: Pain, Moderate
[2017-12-25 08:35] VITALS: BP 122/75
== END 2017-12-25 08:43 | disposition home or self-care (01) ==
LOC: CED 08:23
DX: M54.2 Cervicalgia (principal); G89.29 Other chronic pain; F17.200 Nicotine dependence, unspecified, uncomplicated

== ENCOUNTER 2018-01-11 19:47 | Emergency (ER) | payer OTHER, MEDICAID ==
[2018-01-11] MEDS ORDERED: IBUPROFEN 800 MG TAB PO ONE ×3 (19:59→20:21)
[2018-01-11] MEDS ORDERED: LIDOCAINE 4%/MENTHOL 1% PATCH TD ONE ×2 (19:59→20:00)
--- NOTE | 2018-01-11 20:03 | EDPHY ---
H & P Time Seen by Provider: 01/11/18 19:49 HPI/ROS: CHIEF COMPLAINT: Neck pain, need medication HISTORY OF PRESENT ILLNESS: 42-year-old gentleman with a history of chronic neck pain presents the emergency department reporting that on January 05 he had a epidural injection performed by "[facility]" in [place]. He reports his chronic neck pain was much improved. He has been using lidocaine patch as well as ibuprofen 600 100 mg tablets which were provided via prescription. Patient reports that he is out of both lidocaine patches and the ibuprofen. He has no funds for further medications or lidocaine patches until the of the month. Patient denies any radicular symptoms. Denies any fevers or chills. Denies any intercurrent trauma. No fever, chills, chest pain, shortness of breath, palpitations, vomiting, diarrhea, urinary complaints, headache, lightheadedness. REVIEW OF SYSTEMS: Aside from elements discussed in the HPI, a comprehensive 10-point review of systems was reviewed and is negative. PAST MEDICAL HISTORY: Neck pain, mental health disease. On Risperdal. SOCIAL HISTORY: Homeless. VITAL SIGNS: see nurse's notes. GENERAL: Pleasant gentleman. No acute distress. Normal vital signs with the exception of mild hypertension. Patient thinks this is related to his pain. HEENT: Normal, no discharge or icterus, moist mucous membranes. Neck: Slight paraspinous spasm and tenderness right and left-sided. No midline tenderness. LUNGS: Clear to auscultation bilaterally, no wheezes, rhonchi or rales. CARDIAC: Regular rate and rhythm, no rubs, murmurs or gallops. ABDOMEN: Benign. BACK: No CVA tenderness. No vertebral tenderness. EXTREMITIES: No edema, FROM. NEURO: Alert and oriented, cost estimating clerk strength is equal bilaterally. Normal sensation. SKIN: Warm and dry, no rash. Smoking Status: Former smoker Constitutional: Initial Vital Signs Temperature (C) 36.9 C 01/11/18 19:55 Heart Rate 60 01/11/18 19:55 Respiratory Rate 16 01/11/18 19:55 Blood Pressure 172/85 H 01/11/18 19:55 O2 Sat (%) 96 01/11/18 19:55 O2 Delivery Mode Room Air Allergies/Adverse Reactions: No Known Allergies Allergy (Unverified 01/11/18 19:55) Home Medications: Medication Instructions Recorded NK [No Known Home Meds] 01/11/18 Medical Decision Making ED Course/Re-evaluation: 42-year-old male presents reporting that he needs lidocaine patch and prescription strength ibuprofen for some neck pain. Per the records he was seen in this Emergency Department on December 25 with similar complaints. At that visit he reported that he had a appointment to obtain at epidural injection which she states happened on January 05. Patient received a lidocaine patch in the emergency department in additional lidocaine patch to take home. He received ibuprofen 800 mg now with Tylenol 1000 mg. Patient also received ibuprofen 800 mg tablets x2 as a take home. [facility]. Differential Diagnosis: Differential diagnoses for the patient's symptom complex was considered including but not limited to chronic pain, acute pain, medication refill, lack of resources, drug-seeking behavior. - Data Points Medications Given: Discontinued Medications Acetaminophen (Tylenol) 1,000 mg PO EDNOW ONE Stop: 01/11/18 20:06 Last Admin: 01/11/18 20:10 Dose: 1,000 mg Ibuprofen (Motrin) 800 mg PO EDNOW ONE Stop: 01/11/18 20:00 Last Admin: 01/11/18 20:10 Dose: 800 mg Miscellaneous Medication (Icy Hot Lidocaine/Menthol 4%/1% Patch) 1 patch TD EDNOW ONE Stop: 01/11/18 20:00 Last Admin: 01/11/18 20:09 Dose: 1 patch Miscellaneous Medication (Icy Hot Lidocaine/Menthol 4%/1% Patch) 1 patch TD EDNOW ONE Stop: 01/11/18 20:01 Last Admin: 01/11/18 20:10 Dose: 1 patch Departure - Departure Disposition: Home, Routine, Self-Care Clinical Impression: Neck pain Instructions: Ibuprofen (By mouth), Neck Pain (ED), Chronic Neck Pain (DC) Additional Instructions: Please follow up at [facility]. They may be able to assist on getting you medications prior to the 1st of the month. Referrals: NONE *PRIMARY CARE P,. [Primary Care Provider] - As per Instructions
[2018-01-11] MEDS ORDERED: ACETAMINOPHEN 500 MG TAB PO ONE (20:05)
[2018-01-11 20:35] VITALS: BP 138/89
[2018-01-11] MEDS ORDERED: PATCH REMOVAL 1 EA PATCH TD SCH (21:00)
== END 2018-01-11 20:32 | disposition home or self-care (01) ==
LOC: CED 19:47 → MERGE 19:47 → CED 20:32
DX: M54.2 Cervicalgia (principal); Z87.891 Personal history of nicotine dependence

== ENCOUNTER 2018-03-14 18:07 | Emergency (ER) | payer OTHER, MEDICAID ==
[2018-03-14 18:15] VITALS: BP 132/69
[2018-03-14] MEDS ORDERED: guaiFENesin 200 MG/10 ML UDL PO ONE (18:23)
[2018-03-14] MEDS ORDERED: IBUPROFEN 600 MG TAB PO ONE (18:23)
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
[2018-03-14] MEDS ORDERED: BENZONATATE 100 MG CAP PO ONE (18:25)
== END 2018-03-14 18:38 | disposition home or self-care (01) ==
LOC: CED 18:07
DX: J06.9 Acute upper respiratory infection, unspecified (principal); F17.201 Nicotine dependence, unspecified, in remission; Z59.0 Homelessness

== ENCOUNTER 2018-03-15 13:43 | Emergency (ER) | payer OTHER, MEDICAID ==
[2018-03-15 13:52] VITALS: BP 135/73
--- NOTE | 2018-03-15 14:02 | EDPHY ---
OLIVIA Addendum - Addendum .: Patient 42-year-old male was seen yesterday for upper respiratory symptoms. He had a chest x-ray this morning that he tells me was normal. There was no evidence for pneumonia. He continues to have some cough. He is here for recheck. He has no fever or chest pain but productive cough Exam shows stable vital signs. Breath sounds show some inspiratory expiratory rhonchi but no focal areas of consolidation. No wheezing. Patient will be given prescription for albuterol inhaler. He and I discussed follow-up. He expresses understanding and agreement
== END 2018-03-15 14:08 | disposition home or self-care (01) ==
LOC: CED 13:43
DX: Z09 Encounter for follow-up examination after completed treatment for conditions other than malignant neoplasm (principal); R05 Cough

== ENCOUNTER 2018-08-09 12:20 | Emergency (ER) | payer OTHER, MEDICAID ==
[2018-08-09 12:48] VITALS: BP 148/80
--- NOTE | 2018-08-09 13:37 | EDPHY ---
H & P Time Seen by Provider: 08/09/18 13:36 HPI/ROS: Chief complaint. TB skin test HPI. Patient 43-year-old male homeless [facility]. He had a TB skin test placed at [facility] on 08/06. Possibly it could have been August 05 according to the patient. He did not have it read. The [facility] will not allow him to come back in unless is been red. Patient has no complaints of cough or fever. He tells me had no reaction over the last several days to the TB skin test. His only complaint is fatigue. He is concerned about low glucose and request a glucose check. ROS 10 systems were reviewed and negative with the exception of the elements mentioned in the history of present illness Past Medical/Surgical History: Hemorrhoidectomy, deviated septum repair, asthma, mental health disorder Social History: Single, homeless, daily smoker, no alcohol Smoking Status: Current some day smoker Physical Exam: General Appearance: Alert well-developed male mild distress vital signs stable Eyes: Pupils equal and round no pallor or injection. ENT, Mouth: Mucous membranes are moist. Respiratory: There are no retractions, lungs are clear to auscultation. Cardiovascular: Regular rate and rhythm. Gastrointestinal: Abdomen is soft and nontender, no masses, bowel sounds normal. Neurological: Awake and alert, sensory and motor exams grossly normal. Skin: Mild erythema on the left flexor forearm where the TB skin test was placed. There is no induration. It appears to be non reactive. I interpreted as negative. Musculoskeletal: Neck is supple nontender. Extremities symmetrical, full range of motion. Psychiatric: Patient is oriented X 3, there is no agitation. Constitutional: Initial Vital Signs Temperature (C) 36.7 C 08/09/18 12:40 Heart Rate 65 08/09/18 12:40 Respiratory Rate 16 08/09/18 12:40 Blood Pressure 148/80 H 08/09/18 12:40 O2 Sat (%) 96 08/09/18 12:40 O2 Delivery Mode Room Air Allergies/Adverse Reactions: No Known Allergies Allergy (Verified 08/09/18 12:39) Home Medications: Medication Instructions Recorded Risperidone 12/25/17 Albuterol Hfa Anes Only [Proair 2 puffs IH QID PRN #1 mdi 03/15/18 Hfa Icu (*)] Amitriptyline HCl 08/09/18 Medical Decision Making Procedures: Point of care glucose is 76 Patient was given food ED Course/Re-evaluation: Post prandial glucose 150 Patient and I discussed laboratory evaluation, treatment plan including criteria for return importance of follow-up and further evaluation. He expresses understanding I will write the patient a note that his TB test is negative and he may be admitted to the [facility] Differential Diagnosis: Patient did not have his TB test read at 2 days and they will not allow into the [facility]. I read the TB test at 72 hr is negative. He has no symptoms of tuberculosis including cough, fever, night sweats - Data Points Laboratory Results: 08/09/18 08/09/18 13:59 13:02 POC Glucose 150 mg/dL H mg/dL 76 mg/dL mg/dL (70-100) (70-100) Point of Care Test Results: Chemistry 08/09/18 08/09/18 13:59 13:02 POC Glucose 150 mg/dL H mg/dL 76 mg/dL mg/dL (70-100) (70-100) Departure - Departure Disposition: Home, Routine, Self-Care Clinical Impression: History of TB skin testing Condition: Good Instructions: Non-diabetic Hypoglycemia (ED) Additional Instructions: You're TB skin test was negative. You may be admitted to the [facility]. Follow-up with Trena Barreto for further evaluation of fatigue and blood sugar Referrals: JOSELINE BRAGG [Other] - 2-3 days, call for appt.
== END 2018-08-09 14:59 | disposition home or self-care (01) ==
LOC: CED 12:20
DX: Z11.1 Encounter for screening for respiratory tuberculosis (principal); E16.2 Hypoglycemia, unspecified; Z59.0 Homelessness; F17.200 Nicotine dependence, unspecified, uncomplicated
CPT/HCPCS: 99282-ER

== ENCOUNTER 2018-08-27 10:33 | Emergency (ER) | payer OTHER, MEDICAID | END 2018-08-27 11:27 | disposition home or self-care (01) | LOC: CED 10:33 ==